=== PATIENT | male | born 1980 | race Caucasian/White ===

== ENCOUNTER 2018-11-25 20:00 | Emergency (ER) | payer BC ==
--- NOTE | 2018-11-26 02:40 | ER Document Report ---
HPI - HPI Patient complains to provider of: sunburn Time Seen by Provider: 11/26/18 02:18 Pain Level: 3 Context: 38-year-old male with no medical problems presents emergency department for sunburn sustained last Thursday while fishing. He said that he was not wearing sunscreen and developed a sunburn later in the day. He said he is tried taking Motrin, using aloe, and is wrapping his feet in an Jaciel wrap because he has to wear work boots every day. [place] fevers or chills. Denies any calf tightness or squeezing Past Medical History - Social History Smoking Status: Unknown if Ever Smoked Family History: Reviewed & Not Pertinent Renal/ Medical History: Reports: Hx Kidney Stones GI Medical History: Reports: Hx Irritable Bowel - Immunizations Hx Diphtheria, Pertussis, Tetanus Vaccination: Yes Vertical Provider Document - CONSTITUTIONAL Notes: PHYSICAL EXAMINATION: Reviewed vital signs and charting by RN GENERAL: Well-appearing, well-nourished and in no acute distress. HEAD: Atraumatic, normocephalic. No scalp deformity EYES: Pupils are 3 mm and equal/round, extraocular movements intact, sclera anicteric, conjunctiva are normal. EXTREMITIES: Normal range of motion, no pitting or edema. No cyanosis. NEUROLOGICAL: No focal neurological deficits. Cranial nerves III-XII grossly intact. Moves all extremities spontaneously and on command. PSYCH: Normal mood, normal affect. No suicidal thoughts/ideations. No homocidal thoughts/ideations. No hallucinations. SKIN: Warm, dry, normal turgor, bilateral lower extremity erythema anterior that extends down to the top of his feet with superficial partial-thickness sunburn in the distal left lower extremity anterior. No open wounds. - INFECTION CONTROL TRAVEL OUTSIDE OF THE [place] IN LAST 30 DAYS: No Course - Re-evaluation Re-evalutation: 11/26/18 02:45 Overall well-appearing. No evidence of any deep coulter. I instructed patient to take Motrin 600 mg every 6 hours and symptomatic care using aloe cream or soothing creams. I offered him a shot of Toradol but he declined. Stable for discharge. - Vital Signs Vital signs: Temp Pulse Resp BP Pulse Ox 97.8 F 80 16 132/69 H 97 11/25/18 21:00 11/25/18 21:00 11/25/18 21:00 11/25/18 21:00 11/25/18 21:00 Discharge - Discharge Clinical Impression: Sunburn of second degree Condition: Good Disposition: HOME, SELF-CARE Instructions: Soap Cleansing ([facility]) Additional Instructions: You are seen in the emergency department this a second-degree sunburn. You can expect it to be extremely painful and to have some swelling as well. There is couple little spots on her left solis are blistered and please try to keep it intact. You can do soothing creams like aloe but the most important thing is to take Motrin 600 mg every 6 hours as it is been shown to help reduce inflammation for sunburn. Please take this with food or milk. You can also take Tylenol 1000 mg every 6 hours for pain. If your toes start to turn purple or black, you get worsening swelling, you get large blisters Forms: Return to Work
[2018-11-26 06:19] VITALS: BP 133/80
== END 2018-11-26 02:40 | disposition home or self-care (01) ==
LOC: ER 20:00
DX: L55.1 Sunburn of second degree (principal)
CPT/HCPCS: 99282

== ENCOUNTER 2019-06-01 09:21 | Emergency (ER) | payer BC ==
[2019-06-01] MEDS ORDERED: IBUPROFEN 600 MG TABLET PO ONE (09:45)
[2019-06-01] MEDS ORDERED: ACETAMINOPHEN 325 MG TABLET PO ONE (09:45)
[2019-06-01] MEDS ORDERED: BENZONATATE 100 MG CAPSULE PO ONE (09:46)
[2019-06-01] MEDS ORDERED: GUAIFENESIN 600 MG TABLET.SA PO ONE (09:46)
[2019-06-01] MEDS ORDERED: CETIRIZINE 10 MG TABLET PO ONE (09:46)
[2019-06-01] MEDS ORDERED: IPRATROPIUM/ALBUTEROL 0.5-2.5 MG/3 ML AMPUL NEB ONE (10:04)
--- NOTE | 2019-06-01 10:04 | ER Document Report ---
HPI - HPI Time Seen by Provider: 06/01/19 09:38 Pain Level: 2 Context: Patient is a 38-year-old male who presents emergency department with a chief complaint of a cough, congestion, and generally not feeling well for the past 4- 5 days. Patient states he feels "feverish." Denies any medical history. Smokes a pack/day. - CONSTITUTIONAL Constitutional: REPORTS: Chills - EENT EENT: REPORTS: Congestion. DENIES: Sore Throat, Ear Pain - NEURO Neurology: DENIES: Headache, Weakness, Vision blurred, Dizzinesss / Vertigo - CARDIOVASCULAR Cardiovascular: DENIES: Chest pain - RESPIRATORY Respiratory: REPORTS: Coughing. DENIES: Trouble Breathing - GASTROINTESTINAL Gastrointestinal: DENIES: Abdominal Pain, Nausea, Patient vomiting - REPRODUCTIVE Reproductive: DENIES: : - MUSCULOSKELETAL Musculoskeletal: REPORTS: Extremity pain - DERM Skin Color: Normal Skin Problems: None Past Medical History - Social History Smoking Status: Current Every Day Smoker Frequency of alcohol use: None Drug Abuse: None Family History: Reviewed & Not Pertinent Patient has suicidal ideation: No Patient has homicidal ideation: No Renal/ Medical History: Reports: Hx Kidney Stones. Denies: Hx Peritoneal Dialysis GI Medical History: Reports: Hx Irritable Bowel - Immunizations Hx Diphtheria, Pertussis, Tetanus Vaccination: Yes Vertical Provider Document - CONSTITUTIONAL Agree With Documented VS: Yes Exam Limitations: No Limitations General Appearance: No Apparent Distress - INFECTION CONTROL TRAVEL OUTSIDE OF THE [place] IN LAST 30 DAYS: No - HEENT HEENT: Atraumatic, Normocephalic, PERRLA - NECK Neck: Normal Inspection. negative: Lymphadenopathy-Left, Lymphadenopathy-Right - RESPIRATORY Respiratory: No Respiratory Distress, Other - Diminished breath sounds in bases - CARDIOVASCULAR Cardiovascular: Regular Rate, Regular Rhythm Pulses: Normal: Radial - GI/ABDOMEN Gastrointestinal: Abdomen Soft, Abdomen Non-Tender - MUSCULOSKELETAL/EXTREMETIES Musculoskeletal/Extremeties: FROM - NEURO Level of Consciousness: Awake, Alert, Appropriate - DERM Integumentary: Warm, Dry, No Rash Course - Re-evaluation Re-evalutation: 06/01/19 10:41 Presentation is most consistent with a viral upper respiratory infection. Influenza was negative. Chest x-ray was normal. Patient is overall well appearance, vitals within normal limits, well-hydrated. Patient denies any headache, neck pain, and has no evidence of meningismus on examination. Lungs are clear bilaterally. No evidence of respiratory distress. Based on clinical exam and history, I do not suspect an acute pneumonia, meningitis, strep pharyngitis, or an acute encephalitis. No laboratory or imaging testing is indicated at this time. Will discharge patient with return precautions and followup recommendations. They are in agreement this plan have verbalized understanding return precautions. - Vital Signs Vital signs: Temp Pulse Resp BP Pulse Ox 98.7 F 105 H 20 146/85 H 96 06/01/19 09:25 06/01/19 09:25 06/01/19 09:25 06/01/19 09:25 06/01/19 09:25 Discharge - Discharge Clinical Impression: Upper respiratory infection, viral, Cough Condition: Stable Disposition: HOME, SELF-CARE Instructions: Upper Respiratory Illness ([facility]) Additional Instructions: You are seen today in the emergency department for a cough and congestion. You are being started on Mucinex and cetirizine to help with your symptoms. You are also being sent home with an inhaler. You can take 1-2 puffs every 4-6 hours. Always use a spacer. Tessalon perles are for your cough. Take as needed. Follow up with your primary care provider. Return if you are not getting better. Please cut back 1-2 cigarettes a week. Prescriptions: Acetaminophen [Acetaminophen Extra Strength] 1,000 mg PO Q6HP PRN #90 tablet PRN Reason: Pain Scale Of 1 Ibuprofen [Motrin 600 Mg Tablet] 600 mg PO Q6HP PRN #30 tablet PRN Reason: Benzonatate [Tessalon Perle 100 mg Capsule] 100 mg PO Q8HP PRN #40 cap PRN Reason: Cetirizine HCl [All Day Allergy] 10 mg PO DAILY #30 tablet Guaifenesin [Mucinex] 1,200 mg PO BID #14 tab.[id number] Forms: Smoking Cessation Education, Return to Work
--- NOTE | 2019-06-01 10:20 | RADIOLOGY REPORT (SQ) ---
EXAM DESCRIPTION: CHEST 2 VIEWS COMPLETED DATE/TIME: 06/01/2019 10:02 am REASON FOR STUDY: cough/congestion COMPARISON: None. EXAM PARAMETERS: NUMBER OF VIEWS: two views TECHNIQUE: Digital Frontal and Lateral radiographic views of the chest acquired. RADIATION DOSE: NA LIMITATIONS: none FINDINGS: LUNGS AND PLEURA: No consolidation, pleural effusion or pneumothorax. MEDIASTINUM AND HILAR STRUCTURES: No mediastinal or hilar contour abnormality. HEART AND VASCULAR STRUCTURES: The cardiac silhouette and pulmonary vasculature are within normal guzmán its. BONES: No acute findings. HARDWARE: None in the chest. OTHER: No other finding. IMPRESSION: No acute cardiopulmonary process. TECHNICAL DOCUMENTATION: JOB ID: [id number] [employer]- All Rights Reserved Reading location - IP/workstation name: [email or web address]
[2019-06-01 10:22] LABS: A TYPE INFLUENZA AG NEGATIVE (NEGATIVE); B INFLUENZA AG NEGATIVE (NEGATIVE)
[2019-06-01] MEDS ORDERED: ALBUTEROL SULFATE HFA (90 MCG/PUFF) 8 GM MDI (1 MDI/ER DISP) IH PRN (10:43)
[2019-06-01 11:10] VITALS: BP 125/73
== END 2019-06-01 11:16 | disposition home or self-care (01) ==
LOC: ER 09:21
DX: J06.9 Acute upper respiratory infection, unspecified (principal); R68.89 Other general symptoms and signs; F17.200 Nicotine dependence, unspecified, uncomplicated; Z87.442 Personal history of urinary calculi
CPT/HCPCS: 87804; 71046; J3490; J7620; 94640; 99283